=== PATIENT | male | born 1960 | race African-American/Black ===

== ENCOUNTER 2021-08-06 07:52 | Emergency (ER) | payer OTHER ==
[~2021-08-06] VITALS: Ht 165.1 cm; Wt 54.0 kg
[2021-08-06] MEDS ORDERED: KETOROLAC 60MG/2ML VIAL IM ONE (09:15)
[2021-08-06] MEDS ORDERED: METH-773 MT (09:50)
[2021-08-06] MEDS ORDERED: IBUP-2029 MT (09:50)
[2021-08-06 09:57] VITALS: BP 115/54
== END 2021-08-06 10:11 | disposition home or self-care (01) ==
LOC: ER 08:25
DX: M54.12 Radiculopathy, cervical region (principal); M25.512 Pain in left shoulder; M54.2 Cervicalgia; V49.49XA Driver injured in collision with other motor vehicles in traffic accident, initial encounter; Y93.89 Activity, other specified; Y92.89 Other specified places as the place of occurrence of the external cause; Y99.8 Other external cause status
CPT/HCPCS: 72125; 73030; 96372; 99284; J1885

== ENCOUNTER 2023-11-07 07:51 | Emergency (ER) | payer MEDICAID, OTHER ==
[~2023-11-07] VITALS: Ht 167.6 cm; Wt 68.0 kg
[~2023-11-07 07:51] MED LIST: IBUP-2029 MT; METH-773 MT
[2023-11-07 08:00] VITALS: O2SAT 99
[2023-11-07] MEDS ORDERED: AMOX1TAB16 MT (10:15)
[2023-11-07] MEDS ORDERED: NAPR500T7 MT (10:16)
[2023-11-07] MEDS ORDERED: TOPUD PO (10:22)
[2023-11-07 10:29] VITALS: BP 122/67; PULSE 57; RESP 18; TEMP 36.61404; O2SAT 99
== END 2023-11-07 10:27 | disposition home or self-care (01) ==
LOC: ER 07:51
DX: L03.011 Cellulitis of right finger (principal)
CPT/HCPCS: 99283

== ENCOUNTER 2024-02-17 16:16 | Emergency (ER) | payer BC, MEDICAID ==
[~2024-02-17] VITALS: Ht 160 cm; Wt 58.0 kg
[~2024-02-17 16:16] MED LIST changes: +AMOX1TAB16 MT; +NAPR-1486 MT; +TOPUD PO
[2024-02-17 16:25] VITALS: O2SAT 100
[2024-02-17] MEDS ORDERED: HYDR-4001 MT (17:06)
[2024-02-17] MEDS ORDERED: AMOX-494 MT (17:06)
[2024-02-17] MEDS: IBUPROFEN 600MG TABLET PO NR (17:21)
[2024-02-17 17:24] VITALS: BP 151/70; PULSE 63; RESP 16; TEMP 36.83628; O2SAT 100
== END 2024-02-17 17:25 | disposition home or self-care (01) ==
LOC: ER 16:16
DX: K04.7 Periapical abscess without sinus (principal); R68.84 Jaw pain; Z79.1 Long term (current) use of non-steroidal anti-inflammatories (NSAID); Z98.890 Other specified postprocedural states
CPT/HCPCS: 99283